=== PATIENT | male | born 1960 | race Hispanic/Latino ===

== ENCOUNTER 2020-04-30 13:19 | Inpatient (IN) | payer OTHER ==
[~2020-04-30] VITALS: Ht 165.1 cm; Wt 75.7 kg
[2020-04-30 14:24] LABS: BASOPHILS # (AUTO) 0.1 (0.0-0.1); BASOPHILS % 0.6 % (0.0-1.0); EOSINOPHILS # (AUTO) 1.4 (0.0-0.4); EOSINOPHILS % 11.1 % (0.0-6.0); LYMPHOCYTES # (AUTO) 1.5 (1.0-3.2); LYMPHOCYTES % 12.1 % (18.0-39.1); MEAN CORPUSCULAR HEMOGLOBIN 29.1 pg (28-32); MEAN CORPUSCULAR HGB CONC 33.3 g/dL (31-35); MEAN CORPUSCULAR VOLUME 87.2 fL (81-99); MONOCYTES # (AUTO) 0.5 (0.2-0.8); MONOCYTES % 3.7 % (4.4-11.3); NEUTROPHILS # (AUTO) 9.1 (2.1-6.9); PLATELET COUNT 326 x10e3/uL (140-360); RED BLOOD COUNT 4.47 x10e6/uL (4.3-5.7); RED CELL DISTRIBUTION WIDTH 12.8 % (11.7-14.4)
[2020-04-30 14:28] LABS: INR 0.91; PROTHROMBIN TIME 12.7 seconds (11.9-14.5)
[2020-04-30 14:38] LABS: ALBUMIN 3.2 g/dL (3.5-5.0); ALBUMIN/GLOBULIN RATIO 0.9 (0.8-2.0); ANION GAP 14.9 mmol/L (8-16); CREATININE, SERUM 2.26 mg/dL (0.72-1.25); POTASSIUM 3.9 mmol/L (3.5-5.1)
[2020-04-30] MEDS ORDERED: HYDRALAZINE HCL 20 MG/ML VIAL IV PRN (15:30)
[2020-04-30] MEDS: AMLODIPINE BESYLATE 10 MG TAB PO SCH (15:40)
[2020-04-30] MEDS ORDERED: ASPIRIN 81 MG CHEW TAB PO ONE (15:45)
[2020-04-30 17:12] VITALS: BP 167/101
[2020-04-30] MEDS ORDERED: TEMAZEPAM 7.5 MG CAP PO PRN (18:45)
[2020-04-30] MEDS ORDERED: ONDANSETRON HCL INJ 2MG/ML 2ML 2 MG/ML VIAL IV PRN (18:45)
[2020-04-30] MEDS ORDERED: POLYETHYLENE GLYCOL 3350 17 GM PACK PO PRN (18:45)
[2020-04-30] MEDS: HYDRALAZINE HCL 20 MG/ML VIAL IV PRN (18:48)
[2020-04-30 19:30] LABS: CLARITY,URINE CLEAR (CLEAR); COLOR,URINE YELLOW (YELLOW)
[2020-04-30 19:31] LABS: KETONES,URINE NEGATIVE (NEGATIVE); LEUKOCYTE ESTERASE ,URINE NEGATIVE (NEGATIVE); NITRITE,URINE NEGATIVE (NEGATIVE); PROTEIN,URINE DIPSTICK >=300 (NEGATIVE); URINE UROBILINOGEN 0.2 mg/dL (0.2 - 1)
[2020-04-30] MEDS: SODIUM CHLORIDE 0.9% 1000ML 1,000 ML IV SCH (19:34)
[2020-04-30 19:37] LABS: BACTERIA,URINE RARE /HPF; EPITHELIAL CELLS,URINE RARE /LPF; MUCUS,URINE FEW (RARE); RBC,URINE 0-5 /HPF (0-5); WBC,URINE (MAN) 0-5 /HPF (0-5)
[2020-04-30 20:00] VITALS: BP 156/84
[2020-04-30 21:00] VITALS: BP 156/84
[2020-04-30] MEDS ORDERED: DEXTROSE 50% SYRINGE 50 ML IV PRN (21:15)
[2020-04-30] MEDS: INSULIN REGULAR, HUMAN 100 UNIT/1 ML 3ML VIAL SQ SCH (21:37)
[2020-05-01] VITALS (7 sets, daily range): BP systolic 135–166; BP diastolic 80–93
[2020-05-01] MEDS: SODIUM CHLORIDE 0.9% 1000ML 1,000 ML IV SCH ×2 (04:32→17:08)
[2020-05-01 05:20] LABS: BASOPHILS # (AUTO) 0.1 (0.0-0.1); BASOPHILS % 0.7 % (0.0-1.0); EOSINOPHILS # (AUTO) 1.6 (0.0-0.4); EOSINOPHILS % 13.5 % (0.0-6.0); HEMATOCRIT 34.2 % (38.2-49.6); HEMOGLOBIN 11.6 g/dL (14.0-18.0); LYMPHOCYTES # (AUTO) 2.3 (1.0-3.2); LYMPHOCYTES % 19.3 % (18.0-39.1); MEAN CORPUSCULAR HEMOGLOBIN 29.7 pg (28-32); MEAN CORPUSCULAR HGB CONC 33.9 g/dL (31-35); MEAN CORPUSCULAR VOLUME 87.5 fL (81-99); MONOCYTES # (AUTO) 0.8 (0.2-0.8); NEUTROPHILS % 59.2 % (38.7-80.0); PLATELET COUNT 289 x10e3/uL (140-360); RED BLOOD COUNT 3.91 x10e6/uL (4.3-5.7); RED CELL DISTRIBUTION WIDTH 12.7 % (11.7-14.4)
[2020-05-01 05:59] LABS: ANION GAP 12.7 mmol/L (8-16); CALCIUM 7.8 mg/dL (8.4-10.2); CREATININE, SERUM 2.09 mg/dL (0.72-1.25); POTASSIUM 3.7 mmol/L (3.5-5.1)
[2020-05-01 06:16] LABS: CHOL/HDL RATIO 5.5 (3.9-4.7); MAGNESIUM 1.8 MG/DL (1.3-2.1)
[2020-05-01 06:30] LABS: THYROID STIMULATING HORMONE 0.449 uIU/mL (0.350-4.940)
[2020-05-01] MEDS ORDERED: FAMOTIDINE 20 MG TAB PO SCH (07:30)
[2020-05-01] MEDS: DOCUSATE SODIUM 100 MG CAP PO SCH ×2 (09:22→17:09)
[2020-05-01] MEDS: AMLODIPINE BESYLATE 10 MG TAB PO SCH (09:23)
[2020-05-01] MEDS: INSULIN REGULAR, HUMAN 100 UNIT/1 ML 3ML VIAL SQ SCH ×4 (09:30→21:50)
[2020-05-01] MEDS: FAMOTIDINE 20 MG TAB PO SCH (09:32)
[2020-05-01] MEDS: ACETAMINOPHEN 325 MG TAB PO PRN (12:00)
[2020-05-01] MEDS: HYDRALAZINE HCL 20 MG/ML VIAL IV PRN (21:50)
[2020-05-02] VITALS (8 sets, daily range): BP systolic 141–170; BP diastolic 69–92
[2020-05-02] MEDS: SODIUM CHLORIDE 0.9% 1000ML 1,000 ML IV SCH ×2 (04:48→11:00)
[2020-05-02 05:45] LABS: BASOPHILS # (AUTO) 0.1 (0.0-0.1); BASOPHILS % 0.8 % (0.0-1.0); EOSINOPHILS # (AUTO) 1.9 (0.0-0.4); EOSINOPHILS % 15.7 % (0.0-6.0); HEMATOCRIT 34.3 % (38.2-49.6); HEMOGLOBIN 11.5 g/dL (14.0-18.0); LYMPHOCYTES # (AUTO) 2.5 (1.0-3.2); LYMPHOCYTES % 21.3 % (18.0-39.1); MEAN CORPUSCULAR HEMOGLOBIN 29.2 pg (28-32); MEAN CORPUSCULAR HGB CONC 33.5 g/dL (31-35); MEAN CORPUSCULAR VOLUME 87.1 fL (81-99); MONOCYTES # (AUTO) 0.7 (0.2-0.8); NEUTROPHILS # (AUTO) 6.6 (2.1-6.9); NEUTROPHILS % 55.7 % (38.7-80.0); PLATELET COUNT 280 x10e3/uL (140-360); RED BLOOD COUNT 3.94 x10e6/uL (4.3-5.7); RED CELL DISTRIBUTION WIDTH 12.8 % (11.7-14.4)
[2020-05-02 06:26] LABS: ANION GAP 11.6 mmol/L (8-16); CALCIUM 7.7 mg/dL (8.4-10.2); CREATININE, SERUM 1.92 mg/dL (0.72-1.25); POTASSIUM 3.6 mmol/L (3.5-5.1)
[2020-05-02] MEDS: DOCUSATE SODIUM 100 MG CAP PO SCH ×2 (08:08→16:52)
[2020-05-02] MEDS: ACETAMINOPHEN 325 MG TAB PO PRN (08:08)
[2020-05-02] MEDS: FAMOTIDINE 20 MG TAB PO SCH (08:08)
[2020-05-02] MEDS: AMLODIPINE BESYLATE 10 MG TAB PO SCH (08:08)
[2020-05-02] MEDS: INSULIN REGULAR, HUMAN 100 UNIT/1 ML 3ML VIAL SQ SCH ×3 (08:08→16:51)
[2020-05-02] MEDS ORDERED: ACTOS15 MG PO (10:28)
[2020-05-02] MEDS ORDERED: NIFEDIPINE ER30 MG PO (10:28)
[2020-05-02] MEDS ORDERED: MECLIZINE HCL12.5 MG PO (10:28)
[2020-05-02] MEDS ORDERED: ASPIRIN325 MG PO (10:28)
[2020-05-02] MEDS: MECLIZINE HCL 12.5 MG TAB PO PRN ×2 (11:33→16:50)
[2020-05-02] MEDS: HYDRALAZINE HCL 20 MG/ML VIAL IV PRN (12:44)
[2020-05-02] MEDS ORDERED: INSULIN REGULAR, HUMAN 100 UNIT/1 ML 3ML VIAL SQ ONE (15:45)
[2020-05-02] MEDS ORDERED: LIPITOR20 MG PO (18:52)
[2020-05-02 19:37] LABS: CREATININE,URINE RANDOM 36.67 mg/dL (63-166)
[2020-05-02 19:57] LABS: TOTAL PROTEIN, URINE 255.2 mg/dL (1-14)
[2020-05-03] MEDS ORDERED: NIFEDIPINE CR 30 MG TAB PO SCH (09:00)
[2020-05-03 19:09] LABS: ALPHA 2 GLOBULIN URINE PEP 8.7 % (.)
== END 2020-05-02 19:15 | disposition home or self-care (01) | DRG 637 ==
LOC: ER 14:00 → ERHOLD 15:28 → MED/SURG2 17:05 → MED/SURG 05-01 22:39 → OBSVTOIN 05-02 03:39
PROVIDERS: ADMIT Internal Medicine; ATTEND Internal Medicine
DX: E11.65 Type 2 diabetes mellitus with hyperglycemia (principal); I63.89 Other cerebral infarction; I16.1 Hypertensive emergency; N17.9 Acute kidney failure, unspecified; F17.210 Nicotine dependence, cigarettes, uncomplicated; E83.39 Other disorders of phosphorus metabolism; N18.30 Chronic kidney disease, stage 3 unspecified; Z82.49 Family history of ischemic heart disease and other diseases of the circulatory system; Z83.3 Family history of diabetes mellitus; Z82.5 Family history of asthma and other chronic lower respiratory diseases; I12.9 Hypertensive chronic kidney disease with stage 1 through stage 4 chronic kidney disease, or unspecified chronic kidney disease
CPT/HCPCS: 36415; 70450; 70551; 76770; 80048; 80053; 80061; 81001; 81050; 82575; 82948; 83036; 83735; 84100; 84156; 84165; 84166; 84443; 84484; 85025; 85610; 93005; 93306; 93880; 96361; 99284; G0378; J0360; J1817; J7030; U0002

== ENCOUNTER → 2020-05-12 | Outpatient (CLI) | payer OTHER ==
[~2020-05-12] MED LIST: ACTOS15 MG PO; ASPIRIN325 MG PO; COVID-19 VACC, MRNA(MODERNA)/PF 100 MCG/0.5 ML VIAL IM ONE; LIPITOR20 MG PO; MECLIZINE HCL12.5 MG PO; NIFEDIPINE ER30 MG PO
== END ==
LOC: VACCPMC 09:45
DX: Z23 Encounter for immunization (principal); Z20.822 Contact with and (suspected) exposure to COVID-19

== ENCOUNTER → 2020-06-12 | Outpatient (CLI) | payer OTHER | END | DRG 951 | LOC: VACCPMC 09:26 | DX: Z23 Encounter for immunization (principal); Z20.822 Contact with and (suspected) exposure to COVID-19 | CPT/HCPCS: 0012A; 91301 ==

== ENCOUNTER 2020-12-14 22:33 | Emergency (ER) | payer OTHER ==
[~2020-12-14] VITALS: Ht 165.1 cm; Wt 75.7 kg
[~2020-12-14 22:33] MED LIST changes: -COVID-19 VACC, MRNA(MODERNA)/PF 100 MCG/0.5 ML VIAL IM ONE
== END 2020-12-14 23:55 | disposition home or self-care (01) ==
LOC: ER 23:27
DX: U07.1 COVID-19 (principal)
CPT/HCPCS: 99282; U0002

== ENCOUNTER → 2021-03-02 | Outpatient (CLI) | payer OTHER ==
[~2021-03-02] MED LIST changes: +COVID-19 VACC, MRNA(MODERNA)/PF 100 MCG/0.5 ML VIAL IM ONE
== END | disposition home or self-care (01) ==
LOC: VACCPMC 09:00
DX: Z23 Encounter for immunization (principal); Z20.822 Contact with and (suspected) exposure to COVID-19
CPT/HCPCS: 91301

== ENCOUNTER 2021-10-27 15:38 | Emergency (ER) | payer BC, OTHER ==
[~2021-10-27] VITALS: Ht 165.1 cm; Wt 75.7 kg
[~2021-10-27 15:38] MED LIST changes: -COVID-19 VACC, MRNA(MODERNA)/PF 100 MCG/0.5 ML VIAL IM ONE
[2021-10-27 17:55] VITALS: BP 163/95
== END 2021-10-27 18:01 | disposition home or self-care (01) ==
LOC: ER 16:18
DX: L84 Corns and callosities (principal); I12.9 Hypertensive chronic kidney disease with stage 1 through stage 4 chronic kidney disease, or unspecified chronic kidney disease; E11.22 Type 2 diabetes mellitus with diabetic chronic kidney disease; N18.9 Chronic kidney disease, unspecified
CPT/HCPCS: 99283

== ENCOUNTER 2022-08-27 15:40 | Emergency (ER) | payer BC ==
[~2022-08-27] VITALS: Ht 165.1 cm; Wt 75.7 kg
[2022-08-27 16:56] LABS: BASOPHILS # (AUTO) 0.1 (0.0-0.1); BASOPHILS % 0.7 % (0.0-1.0); EOSINOPHILS # (AUTO) 2.1 (0.0-0.4); EOSINOPHILS % 19.4 % (0.0-6.0); HEMATOCRIT 37.9 % (38.2-49.6); HEMOGLOBIN 12.5 g/dL (14.0-18.0); LYMPHOCYTES # (AUTO) 1.8 (1.0-3.2); LYMPHOCYTES % 16.8 % (18.0-39.1); MEAN CORPUSCULAR HEMOGLOBIN 29.2 pg (28-32); MEAN CORPUSCULAR VOLUME 88.6 fL (81-99); MONOCYTES # (AUTO) 0.8 (0.2-0.8); MONOCYTES % 7.2 % (4.4-11.3); NEUTROPHILS % 55.5 % (38.7-80.0); PLATELET COUNT 327 x10e3/uL (140-360); RED BLOOD COUNT 4.28 x10e6/uL (4.3-5.7); RED CELL DISTRIBUTION WIDTH 12.8 % (11.7-14.4)
[2022-08-27 17:16] LABS: ALANINE AMINOTRANSFERASE 22 IU/L (0-55); ALBUMIN 2.9 g/dL (3.5-5.0); ALBUMIN/GLOBULIN RATIO 0.6 (0.8-2.0); ALKALINE PHOSPHATASE 114 IU/L (40-150); ANION GAP 17.1 mmol/L (8-16); BLOOD UREA NITROGEN 52 mg/dL (7-26); BUN/CREATININE RATIO 5 (6-25); CARBON DIOXIDE 24 mmol/L (22-29); CHLORIDE 103 mmol/L (98-107); CREATININE, SERUM 9.56 mg/dL (0.72-1.25); GLUCOSE 117 mg/dL (74-118); POTASSIUM 3.1 mmol/L (3.5-5.1); SODIUM 141 mmol/L (136-145)
[2022-08-27 17:19] LABS: CALCIUM 6.8 mg/dL (8.4-10.2)
[2022-08-27 19:55] LABS: EOSINOPHILS % (MANUAL) 25 % (0-7); LYMPHOCYTES % (MANUAL) 21 % (19-48); MONOCYTES % (MANUAL) 4 % (3.4-9.0); NEUTROPHILS % (MANUAL) 47 % (40-74); PLATELET ESTIMATE ADEQUATE; PLATELET MORPHOLOGY COMMENT NORMAL; RBC MORPHOLOGY COMMENT NORMAL
[2022-08-27] MEDS: CALCIUM GLUC 1 G/50 ML NACL 50 ML IV SCH ×2 (20:15→23:11)
[2022-08-27] MEDS ORDERED: IOPAMIDOL 370 MG/ML 100 ML INFUS..BTL INJ ONE (20:34)
[2022-08-27] MEDS ORDERED: CALCIUM GLUC 1 G/50 ML NACL 50 ML IV ONE (23:08)
[2022-08-28 01:00] VITALS: BP 167/87; PULSE 72; RESP 16; TEMP 98.3; O2SAT 100
== END 2022-08-28 00:56 | disposition other institution (70) ==
LOC: ER 15:43
DX: E83.51 Hypocalcemia (principal); H54.7 Unspecified visual loss; I12.0 Hypertensive chronic kidney disease with stage 5 chronic kidney disease or end stage renal disease; E11.22 Type 2 diabetes mellitus with diabetic chronic kidney disease; N18.6 End stage renal disease; Z99.2 Dependence on renal dialysis; Z86.73 Personal history of transient ischemic attack (TIA), and cerebral infarction without residual deficits; Z20.822 Contact with and (suspected) exposure to COVID-19; R94.31 Abnormal electrocardiogram [ECG] [EKG]
CPT/HCPCS: 0223U; 36415; 70496; 70498; 70551; 71045; 80053; 82948; 84484; 85025; 93005; 99284; Q9967

== ENCOUNTER 2023-11-12 17:54 | Emergency (ER) | payer BC ==
[~2023-11-12] VITALS: Ht 160 cm; Wt 81.6 kg
[~2023-11-12 17:54] MED LIST changes: +ACETAMIN-CODE12.5 ML PO; +ASPIRIN EC81 MG PO; +ASPIRIN81 MG PO; +AUGMENTIN 500-1 EACH PO; +BACLOFEN10 MG PO; +BISACODYL10 MG/30 M PO; +CALCIUM CARBON500 MG PO; +CARVEDILOL12.5 MG PO; +CLONIDINE HCL0.1 MG PO; +DOXEPIN HCL25 MG PO; +FOLIC ACID0.4 MG PO; +FUROSEMIDE40 MG PO; +LANTUS 3ML100 UNITS/ SC; +LEVOFLOXACIN250 MG PO; +LORATADINE10 MG PO; +LYRICA50 MG PO; +MEROPENEM-1 GM/50 ML IV; +METHOCARBAMOL750 MG PO; +METOPROLOL TART25 MG PO; +OXYBUTYNIN CHLOR5 MG PO; +PANTOPRAZOLE SO40 MG PO; +POLYETHYLENE GL17 GM PO; +ROSUVASTATIN CA20 MG PO; +VALSARTAN160 MG PO; +VITAMIN B-121000 MCG PO; +WELLBUTRIN XL300 MG PO
[2023-11-12 18:45] VITALS: PULSE 72; RESP 18; TEMP 98.2; O2SAT 94
[2023-11-12] MEDS ORDERED: OFLOXACIN5 ML OT (19:05)
== END 2023-11-12 19:21 | disposition home or self-care (01) ==
LOC: FSED 18:00
DX: H10.9 Unspecified conjunctivitis (principal); E11.22 Type 2 diabetes mellitus with diabetic chronic kidney disease; I13.2 Hypertensive heart and chronic kidney disease with heart failure and with stage 5 chronic kidney disease, or end stage renal disease; I50.9 Heart failure, unspecified; N18.6 End stage renal disease; Z99.2 Dependence on renal dialysis; I25.10 Atherosclerotic heart disease of native coronary artery without angina pectoris; Z79.82 Long term (current) use of aspirin; Z79.4 Long term (current) use of insulin; Z79.899 Other long term (current) drug therapy; Z86.73 Personal history of transient ischemic attack (TIA), and cerebral infarction without residual deficits
CPT/HCPCS: 99282

== ENCOUNTER → 2024-01-01 | Outpatient (REF) | payer BC ==
[~2024-01-01] MED LIST changes: +ATORVASTATIN CA40 MG PO; +CALCIUM ACETAT667 M1 PO; +COREG12.5 MG PO; +DOXYCYCLINE HY100 MG PO; +HYDRALAZINE HCL25 MG PO; +OFLOXACIN5 ML OT
== END ==
LOC: CT 12-31 14:27
PROVIDERS: ATTEND Internal Medicine
DX: R22.0 Localized swelling, mass and lump, head (principal); L03.211 Cellulitis of face; G93.89 Other specified disorders of brain
CPT/HCPCS: 70480; 70486

== ENCOUNTER 2024-01-11 14:59 | Emergency (ER) | payer BC, MEDICARE ==
[~2024-01-11] VITALS: Ht 312.4 cm; Wt 90.7 kg
[2024-01-11 16:08] VITALS: PULSE 81; RESP 18; TEMP 98.3; O2SAT 100
== END 2024-01-11 16:07 | disposition home or self-care (01) ==
LOC: FSED 15:06
DX: L03.811 Cellulitis of head [any part, except face] (principal); I12.0 Hypertensive chronic kidney disease with stage 5 chronic kidney disease or end stage renal disease; E11.22 Type 2 diabetes mellitus with diabetic chronic kidney disease; N18.6 End stage renal disease; Z99.2 Dependence on renal dialysis; E78.5 Hyperlipidemia, unspecified; I50.9 Heart failure, unspecified; I25.10 Atherosclerotic heart disease of native coronary artery without angina pectoris; Z87.442 Personal history of urinary calculi
CPT/HCPCS: 70450; 99283

== ENCOUNTER 2024-04-16 13:52 | Inpatient (IN) | payer MEDICARE ==
[~2024-04-16] VITALS: Ht 160 cm; Wt 83.5 kg
[2024-04-16] MEDS ORDERED: CEFEPIME 2 GM in SODIUM CHLORIDE 0.9% 100 ML IV ONE (14:30)
[2024-04-16 14:49] VITALS: PULSE 87; RESP 20; TEMP 98.6; O2SAT 96
[2024-04-16] MEDS: LIDOCAINE HCL 1% LOCAL INJ 20 ML VIAL INJ ONE (16:39)
[2024-04-16] MEDS: Vancomycin IV 1 GM in SODIUM CHLORIDE 0.9% 250ML 250 ML IV ONE (16:40)
[2024-04-16] MEDS ORDERED: DOXYCYCLINE HY100 M3 PO (16:45)
[2024-04-21] MEDS ORDERED: DOXYCYCLINE HY100 MG PO (18:40)
== END 2024-04-16 17:25 | disposition home or self-care (01) | DRG 602 ==
LOC: FSED 13:56 → ERHOLD 15:04
PROVIDERS: ADMIT Internal Medicine; ATTEND Internal Medicine
PROC: 0HC0XZZ Extirpation of Matter from Scalp Skin, External Approach (ICD-10-PCS; principal; 2024-04-16)
DX: L02.811 Cutaneous abscess of head [any part, except face] (principal); I13.2 Hypertensive heart and chronic kidney disease with heart failure and with stage 5 chronic kidney disease, or end stage renal disease; E11.22 Type 2 diabetes mellitus with diabetic chronic kidney disease; N18.6 End stage renal disease; I50.9 Heart failure, unspecified; Z99.2 Dependence on renal dialysis; L03.811 Cellulitis of head [any part, except face]; R29.810 Facial weakness; H53.8 Other visual disturbances; E78.5 Hyperlipidemia, unspecified; Z79.4 Long term (current) use of insulin; Z79.82 Long term (current) use of aspirin
CPT/HCPCS: 70450; 70486; 80053; 85025; 85610; 99284; J7050

== ENCOUNTER 2024-04-18 14:19 | Inpatient (IN) | payer MEDICARE ==
[~2024-04-18] VITALS: Ht 160 cm; Wt 83.5 kg
[~2024-04-18 14:19] MED LIST changes: +DOXYCYCLINE HY100 M3 PO
[2024-04-18 14:35] VITALS: TEMP 98.1
[2024-04-18 15:26] LABS: BASOPHILS # (AUTO) 0.1 (0.0-0.1); BASOPHILS % 0.7 % (0.0-1.0); EOSINOPHILS # (AUTO) 1.3 (0.0-0.4); EOSINOPHILS % 8.9 % (0.0-6.0); HEMATOCRIT 37.2 % (38.2-49.6); HEMOGLOBIN 11.9 g/dL (14.0-18.0); LYMPHOCYTES # (AUTO) 2.2 (1.0-3.2); LYMPHOCYTES % 14.5 % (18.0-39.1); MEAN CORPUSCULAR HEMOGLOBIN 31.2 pg (28-32); MEAN CORPUSCULAR VOLUME 97.4 fL (81-99); MONOCYTES # (AUTO) 1.1 (0.2-0.8); MONOCYTES % 7.3 % (4.4-11.3); NEUTROPHILS # (AUTO) 10.2 (2.1-6.9); NEUTROPHILS % 68.3 % (38.7-80.0); PLATELET COUNT 310 x10e3/uL (140-360); RED BLOOD COUNT 3.82 x10e6/uL (4.3-5.7); WHITE BLOOD COUNT 14.88 x10e3/uL (4.8-10.8)
[2024-04-18 15:35] LABS: INR 1.07; PROTHROMBIN TIME 14.5 seconds (11.9-14.5)
[2024-04-18 15:40] LABS: ALBUMIN 3.6 g/dL (3.5-5.0); ALBUMIN/GLOBULIN RATIO 0.8 (0.8-2.0); BILIRUBIN,TOTAL 0.5 mg/dL (0.2-1.2); CALCIUM 9.5 mg/dL (8.4-10.2); CREATININE, SERUM 8.26 mg/dL (0.72-1.25); TOTAL PROTEIN 8.2 g/dL (6.5-8.1)
[2024-04-18 15:45] LABS: TROPONIN I 0.073 ng/mL (0-0.300)
[2024-04-18] MEDS: Vancomycin IV 1 GM in SODIUM CHLORIDE 0.9% 250ML 250 ML IV ONE (15:45)
[2024-04-18] MEDS ORDERED: IOPAMIDOL 370 MG/ML 100 ML INFUS..BTL INJ ONE (16:13)
[2024-04-18 19:43] LABS: TROPONIN I 0.06 ng/mL (0-0.300)
[2024-04-18 20:00] VITALS: BP 154/85; PULSE 89; RESP 18; TEMP 97.9; O2SAT 92
[2024-04-18 20:15] VITALS: PULSE 88; RESP 16
[2024-04-18 20:30] VITALS: BP 154/84; PULSE 89; RESP 18; TEMP 97.9; O2SAT 92
[2024-04-18] MEDS ORDERED: NIFEDIPINE ER30 M1 PO (23:40)
[2024-04-18] MEDS ORDERED: CLONIDINE HCL0.1 MG PO (23:43)
[2024-04-19] VITALS (9 sets, daily range): BP systolic 151–166; BP diastolic 76–94; PULSE 87–97; RESP 18–21; TEMP 97.8–98.2; O2SAT 91–98
[2024-04-19] MEDS: Morphine 2mg Syringe 2 MG/ML SYR IV PRN (05:33)
[2024-04-19] MEDS: ONDANSETRON HCL INJ 2MG/ML 2ML 2 MG/ML VIAL IV PRN (05:33)
[2024-04-19 06:23] LABS: BASOPHILS # (AUTO) 0.1 (0.0-0.1); BASOPHILS % 0.6 % (0.0-1.0); EOSINOPHILS # (AUTO) 1.3 (0.0-0.4); EOSINOPHILS % 9.7 % (0.0-6.0); HEMOGLOBIN 11.5 g/dL (14.0-18.0); LYMPHOCYTES # (AUTO) 1.8 (1.0-3.2); LYMPHOCYTES % 13.4 % (18.0-39.1); MEAN CORPUSCULAR HEMOGLOBIN 31.1 pg (28-32); MEAN CORPUSCULAR HGB CONC 31.9 g/dL (31-35); MEAN CORPUSCULAR VOLUME 97.3 fL (81-99); MONOCYTES # (AUTO) 0.9 (0.2-0.8); MONOCYTES % 6.5 % (4.4-11.3); NEUTROPHILS # (AUTO) 9.2 (2.1-6.9); NEUTROPHILS % 69.3 % (38.7-80.0); PLATELET COUNT 291 x10e3/uL (140-360); WHITE BLOOD COUNT 13.31 x10e3/uL (4.8-10.8)
[2024-04-19 06:43] LABS: ALBUMIN 3.2 g/dL (3.5-5.0); ALBUMIN/GLOBULIN RATIO 0.8 (0.8-2.0); ANION GAP 22.3 mmol/L (8-16); BILIRUBIN,TOTAL 0.4 mg/dL (0.2-1.2); CALCIUM 8.6 mg/dL (8.4-10.2); CREATININE, SERUM 9.29 mg/dL (0.72-1.25); POTASSIUM 4.3 mmol/L (3.5-5.1); TOTAL PROTEIN 7.4 g/dL (6.5-8.1)
[2024-04-19 07:03] LABS: TROPONIN I 0.057 ng/mL (0-0.300)
[2024-04-19] MEDS ORDERED: DEXTROSE 50% SYRINGE 50 ML IV PRN (09:00)
[2024-04-19] MEDS ORDERED: POLYETHYLENE GLYCOL 3350 17 GM PACK PO PRN (09:00)
[2024-04-19] MEDS ORDERED: BISACODYL 10 MG SUPP PR PRN (09:00)
[2024-04-19] MEDS: INSULIN LISPRO 100 UNIT/1 ML 3ML VIAL SQ SCH (11:30)
[2024-04-19] MEDS: FUROSEMIDE INJ 10 MG/ML 4 ML VIAL IV ONE (12:07)
[2024-04-19] MEDS ORDERED: Doxycycline IV 100 MG in SODIUM CHLORIDE 0.9% 100 ML IV SCH (16:00)
[2024-04-19] MEDS: HYDRALAZINE HCL 20 MG/ML VIAL IV PRN (18:35)
[2024-04-19] MEDS: HEPARIN SOD (PORCINE) 1000 UNIT/ML SDV ONE (20:03)
[2024-04-19] MEDS: SODIUM CHLORIDE 0.9% 1000ML 0 ML ONE (20:03)
[2024-04-19] MEDS: SODIUM CHLORIDE 0.9% 250ML 250 ML ONE ×2 (20:03→20:41)
[2024-04-19] MEDS: Doxycycline IV 100 MG in SODIUM CHLORIDE 0.9% 100 ML IV SCH (20:41)
[2024-04-20] VITALS (9 sets, daily range): BP systolic 151–188; BP diastolic 74–93; PULSE 74–102; RESP 16–20; TEMP 97.9–99.1; O2SAT 93–100
[2024-04-20 06:26] LABS: BASOPHILS # (AUTO) 0.1 (0.0-0.1); BASOPHILS % 1.1 % (0.0-1.0); EOSINOPHILS # (AUTO) 1.1 (0.0-0.4); EOSINOPHILS % 11.8 % (0.0-6.0); HEMATOCRIT 37.6 % (38.2-49.6); HEMOGLOBIN 11.9 g/dL (14.0-18.0); LYMPHOCYTES # (AUTO) 1.5 (1.0-3.2); LYMPHOCYTES % 16.8 % (18.0-39.1); MEAN CORPUSCULAR HEMOGLOBIN 31.2 pg (28-32); MEAN CORPUSCULAR HGB CONC 31.6 g/dL (31-35); MEAN CORPUSCULAR VOLUME 98.7 fL (81-99); MONOCYTES # (AUTO) 0.7 (0.2-0.8); MONOCYTES % 7.6 % (4.4-11.3); NEUTROPHILS # (AUTO) 5.6 (2.1-6.9); NEUTROPHILS % 62.1 % (38.7-80.0); PLATELET COUNT 336 x10e3/uL (140-360); RED BLOOD COUNT 3.81 x10e6/uL (4.3-5.7); RED CELL DISTRIBUTION WIDTH 14.6 % (11.7-14.4); WHITE BLOOD COUNT 9.04 x10e3/uL (4.8-10.8)
[2024-04-20 06:50] LABS: ALBUMIN 3.2 g/dL (3.5-5.0); ALBUMIN/GLOBULIN RATIO 0.7 (0.8-2.0); BILIRUBIN,TOTAL 0.5 mg/dL (0.2-1.2); CALCIUM 9.1 mg/dL (8.4-10.2); CREATININE, SERUM 5.7 mg/dL (0.72-1.25)
[2024-04-20] MEDS: HYDROXYZINE HCL 10 MG TAB PO PRN (13:58)
[2024-04-20] MEDS: NIFEDIPINE CR 30 MG TAB PO ONE (17:13)
[2024-04-21 03:59] VITALS: BP 146/74; PULSE 91; RESP 16; TEMP 98.8; O2SAT 96
[2024-04-21 05:08] LABS: HEPATITIS B CORE AB TOTAL Negative; HEPATITIS B SURFACE AB QUANT 63.6; HEPATITIS B SURFACE AG (P) Negative
[2024-04-21 06:09] LABS: BASOPHILS # (AUTO) 0.1 (0.0-0.1); BASOPHILS % 1.1 % (0.0-1.0); EOSINOPHILS # (AUTO) 1.6 (0.0-0.4); EOSINOPHILS % 16.6 % (0.0-6.0); HEMATOCRIT 34.5 % (38.2-49.6); LYMPHOCYTES # (AUTO) 1.9 (1.0-3.2); MEAN CORPUSCULAR HEMOGLOBIN 31.4 pg (28-32); MEAN CORPUSCULAR HGB CONC 31.9 g/dL (31-35); MEAN CORPUSCULAR VOLUME 98.6 fL (81-99); MONOCYTES # (AUTO) 0.9 (0.2-0.8); MONOCYTES % 9.3 % (4.4-11.3); NEUTROPHILS # (AUTO) 5.1 (2.1-6.9); PLATELET COUNT 308 x10e3/uL (140-360); RED CELL DISTRIBUTION WIDTH 14.5 % (11.7-14.4); WHITE BLOOD COUNT 9.72 x10e3/uL (4.8-10.8)
[2024-04-21 06:28] LABS: ANION GAP 19.4 mmol/L (8-16); CALCIUM 8.6 mg/dL (8.4-10.2); CREATININE, SERUM 7.78 mg/dL (0.72-1.25); POTASSIUM 4.4 mmol/L (3.5-5.1)
[2024-04-21] MEDS ORDERED: SODIUM CHLORIDE 0.9% 1000ML 2,000 ML ONE (07:30)
[2024-04-21 08:00] VITALS: BP 139/72; PULSE 93; RESP 17; TEMP 98.2; O2SAT 94
[2024-04-21] MEDS ORDERED: HEPARIN SOD (PORCINE) 5,000 UNIT/ML VIAL ONE (08:50)
[2024-04-21] MEDS ORDERED: HEPARIN SOD (PORCINE) 1000 UNIT/ML SDV ONE (08:54)
[2024-04-21] MEDS ORDERED: SODIUM CHLORIDE 0.9% 1000ML 2,000 ML IV PRN (09:45)
[2024-04-21] MEDS ORDERED: HEPARIN SOD (PORCINE) 1000 UNIT/ML SDV IV PRN ×2 (09:45)
[2024-04-21 12:00] VITALS: BP 140/77; PULSE 84; RESP 18; TEMP 98.4; O2SAT 97
[2024-04-21] MEDS: NIFEDIPINE CR 30 MG TAB PO SCH (12:19)
[2024-04-21 16:00] VITALS: BP 158/79; PULSE 93; RESP 17; TEMP 98.6; O2SAT 93
[2024-04-21] MEDS ORDERED: DOXYCYCLINE HY100 MG PO (18:40)
[2024-04-21 20:35] VITALS: BP 172/82; PULSE 93; RESP 20; TEMP 98.6; O2SAT 94
[2024-04-22] VITALS: BP 177/82; PULSE 93; RESP 20; RESP 21; TEMP 98.3; O2SAT 96
[2024-04-22 05:15] VITALS: BP 147/68; PULSE 94; RESP 20; TEMP 98.3; O2SAT 95
[2024-04-22 07:50] VITALS: BP 163/77; PULSE 93; RESP 18; TEMP 98.1; O2SAT 96
[2024-04-22 08:22] LABS: BASOPHILS # (AUTO) 0.1 (0.0-0.1); BASOPHILS % 1.1 % (0.0-1.0); EOSINOPHILS # (AUTO) 2.4 (0.0-0.4); EOSINOPHILS % 25.2 % (0.0-6.0); HEMATOCRIT 36.5 % (38.2-49.6); HEMOGLOBIN 12.1 g/dL (14.0-18.0); LYMPHOCYTES # (AUTO) 2.4 (1.0-3.2); LYMPHOCYTES % 25.3 % (18.0-39.1); MEAN CORPUSCULAR HEMOGLOBIN 31.8 pg (28-32); MEAN CORPUSCULAR HGB CONC 33.2 g/dL (31-35); MEAN CORPUSCULAR VOLUME 95.8 fL (81-99); MONOCYTES # (AUTO) 0.8 (0.2-0.8); MONOCYTES % 8.4 % (4.4-11.3); NEUTROPHILS # (AUTO) 3.8 (2.1-6.9); NEUTROPHILS % 39.3 % (38.7-80.0); PLATELET COUNT 350 x10e3/uL (140-360); RED BLOOD COUNT 3.81 x10e6/uL (4.3-5.7); RED CELL DISTRIBUTION WIDTH 14.7 % (11.7-14.4); WHITE BLOOD COUNT 9.57 x10e3/uL (4.8-10.8)
[2024-04-22 08:51] LABS: ANION GAP 19.2 mmol/L (8-16); CALCIUM 8.8 mg/dL (8.4-10.2); CREATININE, SERUM 6.2 mg/dL (0.72-1.25); POTASSIUM 4.2 mmol/L (3.5-5.1)
[2024-04-22 09:53] LABS: EOSINOPHILS % (MANUAL) 2 % (0-7); LYMPHOCYTES % (MANUAL) 25 % (19-48); MONOCYTES % (MANUAL) 3 % (3.4-9.0); NEUTROPHILS % (MANUAL) 70 % (40-74); PLATELET ESTIMATE ADEQUATE; PLATELET MORPHOLOGY COMMENT NORMAL; RBC MORPHOLOGY COMMENT NORMAL
[2024-04-22 09:54] VITALS: BP 163/77; PULSE 93; RESP 18; TEMP 98.1; O2SAT 96
[2024-04-22 11:33] VITALS: BP 169/79; PULSE 90; RESP 18; TEMP 97.9; O2SAT 95
== END 2024-04-22 15:20 | disposition home or self-care (01) | DRG 602 ==
LOC: ER 15:01 → ERHOLD 17:43 → MED/SURG3 20:27
PROVIDERS: ADMIT Internal Medicine; ATTEND Internal Medicine
DX: L03.213 Periorbital cellulitis (principal); J96.01 Acute respiratory failure with hypoxia; I13.2 Hypertensive heart and chronic kidney disease with heart failure and with stage 5 chronic kidney disease, or end stage renal disease; E11.22 Type 2 diabetes mellitus with diabetic chronic kidney disease; N18.6 End stage renal disease; L03.811 Cellulitis of head [any part, except face]; I50.32 Chronic diastolic (congestive) heart failure; L02.811 Cutaneous abscess of head [any part, except face]; L03.211 Cellulitis of face; Z99.2 Dependence on renal dialysis; B95.62 Methicillin resistant Staphylococcus aureus infection as the cause of diseases classified elsewhere; E66.811 Obesity, class 1; Z68.32 Body mass index [BMI] 32.0-32.9, adult; E78.2 Mixed hyperlipidemia; Z79.4 Long term (current) use of insulin; Z79.82 Long term (current) use of aspirin; T36.0X5A Adverse effect of penicillins, initial encounter; T78.40XA Allergy, unspecified, initial encounter; Z86.73 Personal history of transient ischemic attack (TIA), and cerebral infarction without residual deficits; Z88.1 Allergy status to other antibiotic agents
CPT/HCPCS: 36415; 70460; 70487; 71045; 80048; 80053; 82550; 82948; 83735; 83880; 84484; 85025; 85610; 85730; 86704; 86706; 87040; 87071; 87186; 87205; 87340; 93005; 93306; 99252; 99284; J0360; J1644; J1940; J2270; J2405; J2470; J2543; J3410; J7030; J7050; Q9967

== ENCOUNTER 2024-12-22 11:13 | Inpatient (IN) | payer MEDICARE ==
[~2024-12-22] VITALS: Ht 160 cm; Wt 85.3 kg
[2024-12-22] VITALS (7 sets, daily range): BP systolic 141–186; BP diastolic 64–80; PULSE 90–108; RESP 17–20; TEMP 97.8–99.2; O2SAT 93–97
[~2024-12-22 11:13] MED LIST changes: +NIFEDIPINE ER30 M1 PO
[2024-12-22] MEDS ORDERED: SODIUM CHLORIDE FLUSH 10 ML SYR INJ PRN (11:30)
[2024-12-22 11:44] LABS: BASOPHILS % 0.3 % (0.0-1.0); EOSINOPHILS % 1.8 % (0.0-6.0); LYMPHOCYTES % 7.2 % (18.0-39.1); MONOCYTES % 5.7 % (4.4-11.3); NEUTROPHILS % 84.0 % (38.7-80.0); RED CELL DISTRIBUTION WIDTH 13.4 % (11.7-14.4)
[2024-12-22 12:04] LABS: INR 1.09
[2024-12-22 12:11] LABS: EST GLOMERULAR FILTRATION RATE 7.0 ML/MIN (>=60)
[2024-12-22] MEDS ORDERED: Vancomycin IV 1 GM VIAL ONE (12:32)
[2024-12-22] MEDS: CEFEPIME 2 GM in SODIUM CHLORIDE 0.9% 100 ML IV ONE (12:40)
[2024-12-22] MEDS: SODIUM CHLORIDE 0.9% 250ML 250 ML IV ONE (12:40)
[2024-12-22] MEDS ORDERED: MOUNJARO5 MG/0.5 M SQ (13:27)
[2024-12-22] MEDS: VANCOMYCIN IV ONE (14:22)
[2024-12-22] MEDS: SODIUM CHLORIDE 0.9% IV ONE (14:22)
[2024-12-22] MEDS: ACETAMINOPHEN 325 MG TAB PO PRN (17:01)
[2024-12-22] MEDS: HYDRALAZINE HCL 20 MG/ML VIAL IV PRN (17:02)
[2024-12-22] MEDS ORDERED: ALBUMIN 25% 12.5GM 0.25 GM/ML BTL IV PRN ×2 (22:00)
[2024-12-22] MEDS: HYDROCODONE/APAP 5MG-325MG TAB PO PRN (23:03)
[2024-12-22] MEDS ORDERED: DEXTROSE 50% SYRINGE 50 ML IV PRN (23:30)
[2024-12-22] MEDS ORDERED: BISACODYL 10 MG SUPP PR PRN (23:30)
[2024-12-22] MEDS ORDERED: POLYETHYLENE GLYCOL 3350 17 GM PACK PO PRN (23:30)
[2024-12-23] VITALS (7 sets, daily range): BP systolic 121–146; BP diastolic 59–71; PULSE 92–103; RESP 15–18; TEMP 98.4–100; O2SAT 92–99
[2024-12-23 05:59] LABS: BASOPHILS % 0.6 % (0.0-1.0); EOSINOPHILS % 3.2 % (0.0-6.0); LYMPHOCYTES % 10.8 % (18.0-39.1); MONOCYTES % 5.0 % (4.4-11.3); NEUTROPHILS % 78.6 % (38.7-80.0); RED CELL DISTRIBUTION WIDTH 14.0 % (11.7-14.4)
[2024-12-23 07:10] LABS: EST GLOMERULAR FILTRATION RATE 7.0 ML/MIN (>=60)
[2024-12-23] MEDS: ALBUMIN 25% 12.5GM 50ML 100 ML IV ONE (08:28)
[2024-12-23] MEDS: SODIUM CHLORIDE 0.9% 250ML 250 ML ONE (08:28)
[2024-12-23] MEDS: SODIUM CHLORIDE 0.9% 1000ML 1,000 ML ONE (08:29)
[2024-12-23] MEDS: DOCUSATE SODIUM 100 MG CAP PO SCH (08:37)
[2024-12-23] MEDS: SENNOSIDES 8.6 MG TAB PO SCH (08:37)
[2024-12-23] MEDS: NIFEDIPINE CR 30 MG TAB PO SCH (08:37)
[2024-12-23] MEDS: INSULIN LISPRO 100 UNIT/1 ML 3ML VIAL SQ SCH (08:55)
[2024-12-23] MEDS: Morphine 2mg Syringe 2 MG/ML SYR IV PRN (11:13)
[2024-12-23] MEDS: SODIUM CHLORIDE 0.9% 1000ML 0 ML ONE (12:23)
[2024-12-23] MEDS ORDERED: ALBUMIN 25% 12.5GM 0.25 GM/ML BTL IV PRN (13:45)
[2024-12-23] MEDS ORDERED: SODIUM CHLORIDE 0.9% 1000ML 2,000 ML IV PRN (13:45)
[2024-12-24] VITALS (10 sets, daily range): BP systolic 129–159; BP diastolic 65–87; PULSE 93–113; RESP 15–21; TEMP 97.3–102.6; O2SAT 88–99
[2024-12-24 05:03] LABS: HEPATITIS B SURFACE AB QUANT 13.4 mIU/mL (Immunity>10); HEPATITIS B SURFACE AG (P) Negative (Negative)
[2024-12-24 06:12] LABS: BASOPHILS % 0.6 % (0.0-1.0); EOSINOPHILS % 3.9 % (0.0-6.0); LYMPHOCYTES % 13.4 % (18.0-39.1); MONOCYTES % 5.4 % (4.4-11.3); NEUTROPHILS % 76.1 % (38.7-80.0); RED CELL DISTRIBUTION WIDTH 14.0 % (11.7-14.4)
[2024-12-24 06:30] LABS: EST GLOMERULAR FILTRATION RATE 7.0 ML/MIN (>=60)
[2024-12-24] MEDS ORDERED: FENTANYL CITRATE/PF 100MCG/2 ML INJ ONE (10:58)
[2024-12-24] MEDS ORDERED: LIDOCAINE HCL 2% LOCAL INJ 5 ML SDV VIAL INJ ONE (10:58)
[2024-12-24] MEDS ORDERED: ROCURONIUM BROMIDE 0 ML IV ONE (10:58)
[2024-12-24] MEDS ORDERED: PROPOFOL IV EMULSION 10 MG/ML 20 ML VIAL ONE (10:58)
[2024-12-24] MEDS ORDERED: MIDAZOLAM HCL 2 MG/2 ML VIAL ONE (10:58)
[2024-12-24] MEDS ORDERED: SEVOFLURANE INHAL SOLN 250 ML PEN BTL ONE (12:09)
[2024-12-24] MEDS ORDERED: ONDANSETRON HCL INJ 2MG/ML 2ML 2 MG/ML VIAL ONE (12:09)
[2024-12-24] MEDS ORDERED: HEPARIN SOD (PORCINE) 1000 UNIT/ML SDV IV PRN (13:30)
[2024-12-24] MEDS ORDERED: Vancomycin IV 500 MG in SODIUM CHLORIDE 0.9% 100 ML IV SCH (19:15)
[2024-12-25] VITALS (12 sets, daily range): BP systolic 104–140; BP diastolic 54–63; PULSE 85–107; RESP 18–22; TEMP 97.8–102.2; O2SAT 93–99
[2024-12-25 08:44] LABS: EST GLOMERULAR FILTRATION RATE 5.0 ML/MIN (>=60)
[2024-12-25] MEDS: NIFEDIPINE CR 30 MG TAB PO SCH (08:52)
[2024-12-25] MEDS: Vancomycin IV 1 GM in SODIUM CHLORIDE 0.9% 250ML 250 ML IV STA (18:33)
[2024-12-25] MEDS: Vancomycin IV 1 GM VIAL ONE (18:38)
[2024-12-25] MEDS: SODIUM CHLORIDE 0.9% 250ML 250 ML ONE (18:38)
[2024-12-26] VITALS (8 sets, daily range): BP systolic 106–118; BP diastolic 53–58; PULSE 81–98; RESP 18–22; TEMP 97.8–99.8; O2SAT 94–100
[2024-12-26 08:45] LABS: EST GLOMERULAR FILTRATION RATE 9.0 ML/MIN (>=60)
[2024-12-26 10:26] LABS: BASOPHILS % 0.4 % (0.0-1.0); EOSINOPHILS % 4.6 % (0.0-6.0); LYMPHOCYTES % 11.9 % (18.0-39.1); MONOCYTES % 4.6 % (4.4-11.3); NEUTROPHILS % 77.4 % (38.7-80.0); RED CELL DISTRIBUTION WIDTH 14.2 % (11.7-14.4)
[2024-12-26] MEDS: POLYETHYLENE GLYCOL 3350 17 GM PACK PO SCH (13:28)
[2024-12-26] MEDS ORDERED: CLOPIDOGREL BISULFATE 300 MG TAB-DO NOT STOCK PO ONE (16:00)
[2024-12-26] MEDS ORDERED: IOPAMIDOL 370 MG/ML 100 ML INFUS..BTL INJ ONE (16:14)
[2024-12-26] MEDS: CLOPIDOGREL BISULFATE 75 MG TAB PO ONE (18:29)
[2024-12-27] VITALS (15 sets, daily range): BP systolic 100–135; BP diastolic 53–67; PULSE 80–107; RESP 13–18; TEMP 97.3–99.8; O2SAT 92–100
[2024-12-27 06:22] LABS: BASOPHILS % 0.4 % (0.0-1.0); EOSINOPHILS % 0.7 % (0.0-6.0); LYMPHOCYTES % 10.9 % (18.0-39.1); MONOCYTES % 5.6 % (4.4-11.3); NEUTROPHILS % 81.0 % (38.7-80.0); RED CELL DISTRIBUTION WIDTH 14.3 % (11.7-14.4)
[2024-12-27 06:59] LABS: EST GLOMERULAR FILTRATION RATE 7.0 ML/MIN (>=60)
[2024-12-27 07:14] LABS: % IRON SATURATION 34.0 % (15-50)
[2024-12-27] MEDS: ASPIRIN 81 MG ENTERIC COATED PO SCH (09:05)
[2024-12-27] MEDS: HEPARIN SOD/SOD CHLORIDE 2,000 ML ONE (19:43)
[2024-12-27] MEDS: HEPARIN SOD (PORCINE) 1000 UNIT/ML 30ML ONE (19:45)
[2024-12-27] MEDS: VERAPAMIL HCL 2.5 MG/ML 2 ML VIAL ONE (19:46)
[2024-12-27] MEDS: LIDOCAINE HCL 2% LOCAL 20 ML VIAL ONE (19:46)
[2024-12-27] MEDS: NITROGLYCERIN/D5W 200 MCG/ML 250 ML ONE (19:47)
[2024-12-27] MEDS: SODIUM CHLORIDE 0.9% 1000ML 2,000 ML ONE (19:48)
[2024-12-27] MEDS: MIDAZOLAM HCL 2 MG/2 ML VIAL ONE (19:49)
[2024-12-27] MEDS: IOPAMIDOL 370 MG/ML 100 ML INFUS..BTL INJ ONE (19:49)
[2024-12-27] MEDS: CLOPIDOGREL BISULFATE 75 MG TAB ONE (19:50)
[2024-12-28] VITALS (10 sets, daily range): BP systolic 117–136; BP diastolic 57–64; PULSE 81–103; RESP 17–18; TEMP 97.8–99.5; O2SAT 94–100
[2024-12-28 06:37] LABS: BASOPHILS % 0.3 % (0.0-1.0); EOSINOPHILS % 1.6 % (0.0-6.0); LYMPHOCYTES % 8.6 % (18.0-39.1); MONOCYTES % 5.9 % (4.4-11.3); NEUTROPHILS % 82.3 % (38.7-80.0); RED CELL DISTRIBUTION WIDTH 14.3 % (11.7-14.4)
[2024-12-28 07:02] LABS: EST GLOMERULAR FILTRATION RATE 12.0 ML/MIN (>=60)
[2024-12-28] MEDS ORDERED: PROPOFOL IV EMULSION 10 MG/ML 20 ML VIAL ONE (11:23)
[2024-12-28] MEDS ORDERED: DEXAMETHASONE SOD PHOS INJ 4 MG/ML SDV ONE (11:25)
[2024-12-28] MEDS ORDERED: LIDOCAINE HCL 2% LOCAL INJ 5 ML SDV VIAL INJ ONE (11:25)
[2024-12-28] MEDS ORDERED: ONDANSETRON HCL INJ 2MG/ML 2ML 2 MG/ML VIAL ONE (11:25)
[2024-12-28] MEDS ORDERED: FENTANYL CITRATE/PF 100MCG/2 ML INJ ONE (11:26)
[2024-12-28] MEDS ORDERED: MIDAZOLAM HCL 2 MG/2 ML VIAL ONE (11:26)
[2024-12-28] MEDS ORDERED: SUCCINYLCHOLINE CHLORIDE 20 MG/ML 10ML VIAL ONE (11:45)
[2024-12-28] MEDS ORDERED: ACETAMINOPHEN 1000 MG/100 ML 0 ML IV ONE (12:14)
[2024-12-28] MEDS: CLOPIDOGREL BISULFATE 75 MG TAB PO ONE (14:06)
[2024-12-28] MEDS: SODIUM CHLORIDE 0.9% 250ML 250 ML IV ONE ×2 (19:59)
[2024-12-28] MEDS: SODIUM CHLORIDE 0.9% 250ML 250 ML ONE (19:59)
[2024-12-29] VITALS (7 sets, daily range): BP systolic 112–136; BP diastolic 58–70; PULSE 74–87; RESP 16–19; TEMP 98.1–98.7; O2SAT 97–100
[2024-12-29 06:15] LABS: BASOPHILS % 0.3 % (0.0-1.0); EOSINOPHILS % 2.3 % (0.0-6.0); LYMPHOCYTES % 13.4 % (18.0-39.1); MONOCYTES % 6.3 % (4.4-11.3); NEUTROPHILS % 76.4 % (38.7-80.0); RED CELL DISTRIBUTION WIDTH 16.9 % (11.7-14.4)
[2024-12-29 06:23] LABS: EST GLOMERULAR FILTRATION RATE 8.0 ML/MIN (>=60)
[2024-12-29] MEDS: SODIUM CHLORIDE 0.9% 250ML 250 ML IV ONE (08:12)
[2024-12-29] MEDS: NIFEDIPINE CR 30 MG TAB PO SCH (08:53)
[2024-12-29] MEDS: CLOPIDOGREL BISULFATE 75 MG TAB PO SCH (08:53)
[2024-12-29] MEDS: ATORVASTATIN 40 MG TAB PO SCH (20:45)
[2024-12-30] VITALS (9 sets, daily range): BP systolic 108–154; BP diastolic 57–74; PULSE 73–82; RESP 16–21; TEMP 97.7–98.1; O2SAT 95–100
[2024-12-30 06:21] LABS: BASOPHILS % 0.5 % (0.0-1.0); EOSINOPHILS % 5.1 % (0.0-6.0); LYMPHOCYTES % 15.6 % (18.0-39.1); MONOCYTES % 6.3 % (4.4-11.3); NEUTROPHILS % 70.7 % (38.7-80.0); RED CELL DISTRIBUTION WIDTH 17.1 % (11.7-14.4)
[2024-12-30 06:39] LABS: EST GLOMERULAR FILTRATION RATE 12.0 ML/MIN (>=60)
[2024-12-31] VITALS (7 sets, daily range): BP systolic 135–165; BP diastolic 63–76; PULSE 71–80; RESP 16–19; TEMP 97.6–98; O2SAT 96–100
[2024-12-31 07:07] LABS: BASOPHILS % 0.6 % (0.0-1.0); EOSINOPHILS % 6.7 % (0.0-6.0); LYMPHOCYTES % 17.2 % (18.0-39.1); MONOCYTES % 4.4 % (4.4-11.3); NEUTROPHILS % 69.2 % (38.7-80.0); RED CELL DISTRIBUTION WIDTH 16.5 % (11.7-14.4)
[2024-12-31 07:18] LABS: EST GLOMERULAR FILTRATION RATE 9.0 ML/MIN (>=60)
[2024-12-31] MEDS ORDERED: HEPARIN SOD (PORCINE) 1000 UNIT/ML SDV IV PRN (13:45)
[2024-12-31] MEDS: Vancomycin IV 500 MG in SODIUM CHLORIDE 0.9% 100 ML IV SCH (17:55)
[2025-01-01 05:57] VITALS: BP 169/72; PULSE 69; TEMP 97.6; O2SAT 100
[2025-01-01 07:01] LABS: BASOPHILS % 0.6 % (0.0-1.0); EOSINOPHILS % 7.7 % (0.0-6.0); LYMPHOCYTES % 15.7 % (18.0-39.1); MONOCYTES % 5.5 % (4.4-11.3); NEUTROPHILS % 69.1 % (38.7-80.0); RED CELL DISTRIBUTION WIDTH 15.9 % (11.7-14.4)
[2025-01-01 07:48] LABS: EST GLOMERULAR FILTRATION RATE 11.0 ML/MIN (>=60)
[2025-01-01 08:10] VITALS: BP_SYST 70; PULSE 72; RESP 18; TEMP 97.7; O2SAT 98
[2025-01-01 09:00] VITALS: BP 153/70; PULSE 72; RESP 18; TEMP 97.7; O2SAT 98
[2025-01-01] MEDS ORDERED: ASPIRIN EC81 MG PO (09:48)
[2025-01-01] MEDS ORDERED: PLAVIX75 MG PO (09:48)
[2025-01-01] MEDS ORDERED: NIFEDIPINE ER30 M1 PO (09:48)
[2025-01-01] MEDS ORDERED: VANCOMYCIN HCL500 MG IV (10:10)
[2025-01-01 11:15] VITALS: BP 158/79; PULSE 79; RESP 18; TEMP 97.1; O2SAT 98
[2025-01-01] MEDS ORDERED: LIPITOR20 MG PO ×2 (11:56→11:58)
[2025-01-01 12:51] VITALS: BP 158/79; PULSE 74
== END 2025-01-01 13:35 | DRG 853 ==
LOC: ER 11:20 → ERHOLD 11:21 → ER 11:24 → MED/SURG2 12:58
PROVIDERS: ADMIT Internal Medicine; ATTEND Internal Medicine
PROC: 3E03329 Introduction of Other Anti-infective into Peripheral Vein, Percutaneous Approach (ICD-10-PCS; 2024-12-22)
PROC: 5A1D70Z Performance of Urinary Filtration, Intermittent, Less than 6 Hours Per Day (ICD-10-PCS; principal; 2024-12-23)
PROC: 0LBV0ZZ Excision of Right Foot Tendon, Open Approach (ICD-10-PCS; 2024-12-24)
PROC: 5A1D70Z Performance of Urinary Filtration, Intermittent, Less than 6 Hours Per Day (ICD-10-PCS; 2024-12-25)
PROC: 047M3ZZ Dilation of Right Popliteal Artery, Percutaneous Approach (ICD-10-PCS; 2024-12-27)
PROC: 047P3ZZ Dilation of Right Anterior Tibial Artery, Percutaneous Approach (ICD-10-PCS; 2024-12-27)
PROC: 047R3ZZ Dilation of Right Posterior Tibial Artery, Percutaneous Approach (ICD-10-PCS; 2024-12-27)
PROC: 5A1D70Z Performance of Urinary Filtration, Intermittent, Less than 6 Hours Per Day (ICD-10-PCS; 2024-12-27)
PROC: B41D1ZZ Fluoroscopy of Aorta and Bilateral Lower Extremity Arteries using Low Osmolar Contrast (ICD-10-PCS; 2024-12-27)
PROC: 0J9Q0ZZ Drainage of Right Foot Subcutaneous Tissue and Fascia, Open Approach (ICD-10-PCS; 2024-12-28)
PROC: 30233N1 Transfusion of Nonautologous Red Blood Cells into Peripheral Vein, Percutaneous Approach (ICD-10-PCS; 2024-12-28)
PROC: 5A1D70Z Performance of Urinary Filtration, Intermittent, Less than 6 Hours Per Day (ICD-10-PCS; 2024-12-29)
PROC: 30233N1 Transfusion of Nonautologous Red Blood Cells into Peripheral Vein, Percutaneous Approach (ICD-10-PCS; 2024-12-29)
PROC: 5A1D70Z Performance of Urinary Filtration, Intermittent, Less than 6 Hours Per Day (ICD-10-PCS; 2025-01-01)
DX: A41.9 Sepsis, unspecified organism (principal); N18.6 End stage renal disease; I12.0 Hypertensive chronic kidney disease with stage 5 chronic kidney disease or end stage renal disease; I69.354 Hemiplegia and hemiparesis following cerebral infarction affecting left non-dominant side; I70.92 Chronic total occlusion of artery of the extremities; L03.115 Cellulitis of right lower limb; L02.611 Cutaneous abscess of right foot; M86.171 Other acute osteomyelitis, right ankle and foot; D62 Acute posthemorrhagic anemia; L03.031 Cellulitis of right toe; E11.621 Type 2 diabetes mellitus with foot ulcer; E11.22 Type 2 diabetes mellitus with diabetic chronic kidney disease; Z99.2 Dependence on renal dialysis; D63.1 Anemia in chronic kidney disease; E11.42 Type 2 diabetes mellitus with diabetic polyneuropathy; E11.51 Type 2 diabetes mellitus with diabetic peripheral angiopathy without gangrene; Z79.85 Long-term (current) use of injectable non-insulin antidiabetic drugs; Z79.4 Long term (current) use of insulin; I70.235 Atherosclerosis of native arteries of right leg with ulceration of other part of foot; B95.62 Methicillin resistant Staphylococcus aureus infection as the cause of diseases classified elsewhere; L97.511 Non-pressure chronic ulcer of other part of right foot limited to breakdown of skin; M85.871 Other specified disorders of bone density and structure, right ankle and foot; E78.00 Pure hypercholesterolemia, unspecified; Z87.891 Personal history of nicotine dependence; R00.0 Tachycardia, unspecified; R53.81 Other malaise; R09.89 Other specified symptoms and signs involving the circulatory and respiratory systems; R06.02 Shortness of breath; R06.01 Orthopnea; Z71.3 Dietary counseling and surveillance; Z68.33 Body mass index [BMI] 33.0-33.9, adult; Z71.81 Spiritual or religious counseling; Z79.82 Long term (current) use of aspirin; Z79.899 Other long term (current) drug therapy; Z79.02 Long term (current) use of antithrombotics/antiplatelets
CPT/HCPCS: 36247; 36415; 37228; 37232; 71045; 74177; 75625; 75716; 76937; 80048; 80053; 80202; 82607; 82728; 82746; 82948; 83036; 83540; 83605; 83735; 84466; 85014; 85025; 85610; 85730; 86706; 86850; 86900; 86920; 87040; 87071; 87075; 87186; 87205; 87340; 93880; 93925; 96372; 97606; 99152; 99153; 99252; 99284; C1725; C1760; C1769; C1887; C1894; J0330; J0360; J0692; J1100; J1644; J2003; J2250; J2270; J2405; J3370; J3373; J7030; J7040; J7050; P9016; Q9967